=== PATIENT | female | born 1990 | race Caucasian/White ===

== ENCOUNTER 2017-07-29 15:16 | Inpatient (IN) | payer OTHER ==
[~2017-07-29] VITALS: Ht 157.5 cm; Wt 81.2 kg
[2017-07-29] VITALS (8 sets, daily range): BP systolic 124–137; BP diastolic 66–85
[2017-07-29] MEDS ORDERED: PRENTAB9 PO (15:50)
[2017-07-29] MEDS ORDERED: FERR325T3 PO (15:50)
[2017-07-29] MEDS ORDERED: COLA100C5 PO (15:50)
[2017-07-29] MEDS ORDERED: ZANT1TAB PO (15:51)
[2017-07-29] MEDS ORDERED: LACTATED RINGER'S 1000 ML IV STA (16:31)
[2017-07-29] MEDS ORDERED: LR 1,000 ML IV SCH ×2 (16:31)
[2017-07-29] MEDS ORDERED: OXYTOCIN DRIP 30 UNITS in APPROPRIATE DILUENT 1 EA IV SCH (16:45)
--- NOTE | 2017-07-29 16:55 | HPEPDOC ---
Obstetrical History & Physical General Date of Admission Jul 29, 2017 at 16:20 History of Present Illness 26 yo G1 @ 40+1 by LMP(21OCT2016) and 9+6 wk US on 29DEC2016) presents to L&D ambulatory with c/o LOF. Denies CTX, VB and DFM. GBS negative. Chief Complaint: LOF, term Information Provided By: Patient Age: 26 : 1 Term: 0 Pre-term: 0 Abortions: 0 Livin Care Care: Good Care Number of Visits: 9 Dating Final EDC: Jul 28, 2017 Final EDC for Daily Update: Jul 28, 2017 Final EDC by: LMP LMP: Oct 21, 2016 1st Trimester Date: Dec 29, 2016 Weeks + Days: 9.6 Estimated Date of Confinement: Jul 28, 2017 EGA at Admission: 40.1 Antepartum Course Diagnos(e)s 1. Constipation 2. anemia 3. Elevated 1 hour GTT- 3 hour normal 4. GERD Height (inches): 62 Pre- weight (lbs.): 148 Admission Weight (lbs.): 180 Change in Weight (lbs.): 32 Past Medical History Past Obstetrical History : Past Obstetrical History: [employer] History: No pertinent history Past Medical History Medical History -chronic constipation Surgical History: Tonsilectomy (1998), [place] teeth (2008), Other (cystoscopy- 2006) Family History Significant Family History: No pertinent family hx Social History Marital Status: Family situation: Spouse/partner home Psychosocial History: No pertinent psych hx * Smoker: non-smoker Alcohol: Denies Drugs: denies Abuse Violence Screening Have you been hit/kicked/slapp: No Have you been sexually assault: No Imunizations Tdap status: current ([id number]) Influenza Status: current ([id number]) Allergies Coded Allergies: Penicillins (Verified Allergy, Unknown, 07/29/17) Medications Scheduled Docusate Sodium (Colace) 100 Mg Cap, 100 MG PO DAILY Ferrous Sulfate (Ferrous Sulfate) 325 Mg Tab, 325 MG PO TID Multivitamins/ ( 27-0.8 mg) 1 Tab Tab, Unknown Dose PO DAILY Ranitidine HCl (Zantac) 150 Mg Tab, 1 TAB PO BID Physical Examination Physical Examination GENERAL: A&O x3 ABDOMEN: Gravid, Non-tender to touch FETUS: Is VTX by SVBeverley and Tomas. HEART RATE: RRR, no m/r/g LUNGS: CTA EXTREMITIES: No edema. No clonus. DTRs +1 EFW- 3400 gms Laboratory Data 24H LABS Laboratory Tests 2 07/29/17 16:30: Serology Scanned Report Hepatitis B Testing CBC/BMP [id number] 5.2/12.0/35.2/266 [id number] 13.10/10.6/31.5/226 [id number] 11.20/12.6/38.4/168 Pertinent Laboratoy Data Blood Type: A+ RBC Antibody Screen: Negative HIV: Negative Hepatitis B: Negative Hepatitis C: Unknown Rapid Plasma Reagin: Nonreactive Rubella: Immune Varicella: Immune Chlamydia/Gonorrhea: Negative Group B Streptococcus: Negative Quad Screen Test: Declined Cystic Fibrosis: Negative Glucose Tolerance Test: 191 (88/167/128/54) Anatomy Ultrasound Ultrasound Date: March 08, 2017 Placenta Location: Anterior Normal Anatomy: Yes Placenta Previa: No Estimated Weight (grams): 270 (34%) Steroid Therapy Steroid Therapy: No Vaginal Examination Dilation: 1cm Effacement: 40-50% Station: -2 Cervical Consistency: Medium Cervical Position: Middle Presentation: Cephalic presentation Position: Vertex (occiput) Assessment Heart Rate (FHR): 150 Variability: Moderate Accelerations: Positive Decelerations: None Tocometer Contractions: Yes Frequency: regular, every 1-3 min. Duration: less than 60 seconds Strength: palpated as mild, resting tone palp/soft Multi-drug resistant Organism: No history of MDRO Assessment/Plan Assessment 26 yo G1 @ 40+1 by LMP(21OCT2016) and 9+6 wk US on 29DEC2016) presents to L&D ambulatory with SROM @ 1230 07/29. Denies CTX, VB and DFM. GBS negative. Plan Admit and orient. 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 Diet: clear liquid GBS negative Labs and IV per protocol Counseled on Pitocin and IOL LR Bolus 1000 mL, then at 125 mL/hr. Anticipate C-S as appropriate. VEDA JEAN CNM Jul 29, 2017 16:55
[2017-07-29 16:58] LABS: MEAN CORPUSCULAR HEMOGLOBIN 31.4 pg (27.0-33.0); MEAN CORPUSCULAR HGB CONC 33.5 g/dl (32.0-36.5); MEAN CORPUSCULAR VOLUME 93.8 fl (80.0-96.0); RED CELL DISTRIBUTION WIDTH 13.6 % (11.5-14.5); WHITE BLOOD COUNT 11.4 10^3/uL (4.0-10.0)
--- NOTE | 2017-07-29 21:22 | IPNPDOC ---
Text Note Date of Service The patient was seen on 07/29/17. NOTE [id number] @ 0918 26 yo G1 @ 40+1 by LMP(21OCT2016) and 9+6 wk US on 29DEC2016) presents to L&D ambulatory with c/o LOF. Denies CTX, VB and DFM. GBS negative. S: On the ball at bedside, reports some CTXs, but denies pain. FOB at bedside O: VS- WNL, afebrile FHR- 150, moderate variability, + accel, no decels CTX- Q2-4 min, lasting <90 sec, palpated a mild, resting tone palpated as soft SVE- 2/70/-2- per RN Pitocin @ 10 mU/min A: 26 yo G1 @ 41+1 with minimal cervical change, CAT I FHR tracing P: continue to monitor and assess, reassess prn, cont pitocin IOL per protocol VS,Fishbone, I+O VS, Fishbone, I+O Laboratory Tests 07/29/17 16:48 Red Blood Count 4.49, Mean Corpuscular Volume 93.8, Mean Corpuscular Hemoglobin 31.4, Mean Corpuscular Hemoglobin Concent 33.5, Red Cell Distribution Width 13.6 Vital Signs Date Time Temp Pulse Resp B/P (MAP) Pulse Ox O2 Delivery O2 Flow Rate FiO2 07/29/17 18:53 107 137/82 (100) VEDA JEAN CNM Jul 29, 2017 21:22
[2017-07-30] VITALS (57 sets, daily range): BP systolic 96–168; BP diastolic 53–82
[2017-07-30] MEDS ORDERED: FENTANYL 2MCG/ML ROPIVACAINE 0.2% IN 0.9% NACL 200ML IVBAG As Ordered ONE (01:30)
--- NOTE | 2017-07-30 01:36 | IPNPDOC ---
Text Note Date of Service The patient was seen on 07/30/17. NOTE [id number] @ 0125 26 yo G1 @ 40+2 by LMP(21OCT2016) and 9+6 wk US on 29DEC2016) presents to L&D ambulatory with c/o LOF. Denies CTX, VB and DFM. GBS negative. S: On hands and knees in the bed, reports painful CTXs. Requesting and epidural. FOB at bedside O: VS- WNL, afebrile FHR- 145, moderate variability, + accel, no decels CTX- Q1-2 min, lasting <90 sec, palpated a mild, resting tone palpated as soft SVE- 2/100/-2, soft/mid/vtx Pitocin @ 14 mU/min SROM x 7 hours, fluid remains clear A: 26 yo G1 @ 41+1 with minimal cervical change, CAT I FHR tracing P: continue to monitor and assess, reassess prn, cont pitocin IOL per protocol. Anesthesia consult for epidural now Nemo CABAN, I+O VSNemo, I+O Laboratory Tests 07/29/17 16:48 Red Blood Count 4.49, Mean Corpuscular Volume 93.8, Mean Corpuscular Hemoglobin 31.4, Mean Corpuscular Hemoglobin Concent 33.5, Red Cell Distribution Width 13.6 Vital Signs Date Time Temp Pulse Resp B/P (MAP) Pulse Ox O2 Delivery O2 Flow Rate FiO2 07/30/17 00:56 81 107/71 (83) 07/29/17 22:02 98.5 16 VEDA JEAN CNM Jul 30, 2017 01:36
[2017-07-30] MEDS ORDERED: EPIDURAL COMMENT XX SCH (02:15)
[2017-07-30] MEDS ORDERED: ONDANSETRON 4MG/2ML VIAL (J2405) IV PRN ×2 (02:15→13:45)
[2017-07-30] MEDS ORDERED: NALOXONE INJ 0.4 MG/1 ML VIAL (J2310) IV PRN (02:15)
[2017-07-30] MEDS ORDERED: diphenhydrAMINE INJ 50MG/ML VIAL (J1200) IV PRN (02:15)
[2017-07-30] MEDS ORDERED: ePHEDrine SULFATE 25 MG/5 ML(5MG/ML) SYRINGE IV PRN (02:15)
[2017-07-30] MEDS ORDERED: FENTANYL/ROPIVACAINE/NACL BAG 200 ML EPIDURAL SCH (02:15)
[2017-07-30] MEDS ORDERED: REFRIGERATOR IV KEYS XX PRN (02:15)
[2017-07-30] MEDS ORDERED: LACTATED RINGER'S 1000 ML IV PRN (02:15)
[2017-07-30] MEDS ORDERED: EPIDURAL/PCA KEYS XX PRN (02:15)
[2017-07-30] MEDS ORDERED: UNASYN 1.5 GM VIAL As Ordered ONE (12:08)
[2017-07-30] MEDS ORDERED: GENTAMICIN 400 MG in D5W 50 ML IV ONE (12:15)
[2017-07-30] MEDS ORDERED: CLINDAMYCIN 900 MG in APPROPRIATE DILUENT 1 EA IV SCH (12:15)
[2017-07-30] MEDS ORDERED: CLINDAMYCIN 900 MG/50 ML PREMIX BAG As Ordered ONE (12:18)
[2017-07-30] MEDS ORDERED: OXYTOCIN 30 UNITS IN 0.9% NaCl 500ML IV BAG (J2590) As Ordered ONE (12:59)
[2017-07-30] MEDS: OXYTOCIN DRIP 30 UNITS in APPROPRIATE DILUENT 1 EA IV SCH ×2 (13:10→14:05)
[2017-07-30] MEDS ORDERED: DIBUCAINE 1% OINTMENT 30GM TOP PRN (13:45)
[2017-07-30] MEDS ORDERED: PROMETHAZINE 25 MG TAB PO PRN (13:45)
[2017-07-30] MEDS ORDERED: ANUSOL HC CREAM 30GM TOP PRN (13:45)
[2017-07-30] MEDS ORDERED: METHYLERGONOVINE MALEATE 0.2 MG/ML VIAL (J2210) IM ONE (13:45)
[2017-07-30] MEDS ORDERED: miSOPROStol 200 MCG TAB (S0191) PR ONE (14:00)
--- NOTE | 2017-07-30 14:10 | DNPDOC ---
[facility] Delivery Note Delivery Note DATE OF DELIVERY: [id number] PREDELIVERY DIAGNOSIS: 40+2 weeks' gestation and labor. POST DELIVERY DIAGNOSIS: Delivered. PROCEDURE: MILK TANKER DRIVER: Linda Vázquez CNM ANESTHESIA: epidural ESTIMATED BLOOD LOSS: 600mL. FINDINGS: 8 pound 7 ounce 3820 infant, Score 8/8, nuchal cord times x 1 DELIVERY SUMMARY: Patient is a 26 yo who was admitted for SROM of clear fluid @ 1240 on 29JUL2017. She progressed to c/c/+2 1/2 with pitocin infusing and epidural infusing. She had c/o increasing rectal pressure. Variable decelerations noted with pushing effort. She pushed for approx 2 hours and 20 min. Dx of chorio made during pushing. Female delivered via to a sterile field. head delivered in a controlled manner. Nuchal cord x 1 note with additional body cord. Shoulders delivered with mild downward traction(shoulders presented directly transverse). Corpus delivered over approx 30 seconds. Female infant placed on mother's abdomen. Cord clamped x 2 and cut by delivering provider. Pitocin bolus started with delivery of . Infant had a vigorous cry. Intact Placenta with 3 vessel cord delivered spontaneously approximately 3 min later. Posterior vaginal vault laceration noted. Repaired in usual fashion. Fundus noted to be boggy along with lower uterine segment. Uterus swept of clots. Cytotec 1000 mcg VT. 2nd bag of pitocin bolus. Methergine given IM x 1. Dr. Becker called to bedside for further assessment. Performed a speculum exam. Bleeding returned to normal expected bleeding after delivery. EBL- 600 ml. - 8/8, 8 lbs 7 ounces, 3820 gms, mother is in stable condition in the delivery room. Infant is in the NICU d/t mother's dx of chorio. Plan to draw CBC @ 1800, Methergine series ordered. Linda Vázquez CNM WILSON, KELLI C. CNM Jul 30, 2017 14:10
[2017-07-30] MEDS: METHYLERGONOVINE MALEATE 0.2 MG TAB PO SCH ×2 (17:00→21:00)
[2017-07-30] MEDS: ACETAMINOPHEN 500 MG TAB PO PRN (17:11)
[2017-07-30] MEDS: IBUPROFEN 800 MG TAB PO PRN (22:12)
[2017-07-31] MEDS: METHYLERGONOVINE MALEATE 0.2 MG TAB PO SCH ×6 (02:13→21:30)
[2017-07-31 06:00] VITALS: BP 113/80
[2017-07-31] MEDS: IBUPROFEN 800 MG TAB PO PRN ×2 (06:25→18:22)
--- NOTE | 2017-07-31 08:42 | IPNPDOC ---
Text Note Date of Service The patient was seen on 07/31/17. NOTE PPD1 prog note States feeling well, no complaints. No heavy VB. Pain controlled. Voiding, ambulatory. Bonding well. Breast feeding. VSSAF CTAB RRR Ut at U-2, firm Ext no CCE a/p: Doing well. Routine PP care. Sessions VS,Nemo, I+O VSNemo, I+O Vital Signs Date Time Temp Pulse Resp B/P (MAP) Pulse Ox O2 Delivery O2 Flow Rate FiO2 07/31/17 06:00 97.6 80 18 113/80 (91) SESSIONS,COLIN Veliz MD Jul 31, 2017 08:42
[2017-07-31] MEDS: PRENATAL VITAMINS CHEWABLE TABLET PO SCH (09:00)
[2017-07-31] MEDS: DOCUSATE SODIUM 100 MG CAP PO PRN (14:50)
[2017-07-31 18:00] VITALS: BP 133/78
[2017-07-31 18:25] LABS: MEAN CORPUSCULAR HEMOGLOBIN 31.3 pg (27.0-33.0); MEAN CORPUSCULAR HGB CONC 32.7 g/dl (32.0-36.5); MEAN CORPUSCULAR VOLUME 95.9 fl (80.0-96.0); RED CELL DISTRIBUTION WIDTH 13.8 % (11.5-14.5); WHITE BLOOD COUNT 14.7 10^3/uL (4.0-10.0)
[2017-08-01] MEDS: METHYLERGONOVINE MALEATE 0.2 MG TAB PO SCH ×4 (01:00→13:00)
[2017-08-01 06:01] VITALS: BP 122/86
[2017-08-01] MEDS: PRENATAL VITAMINS CHEWABLE TABLET PO SCH (09:00)
[2017-08-01] MEDS: IBUPROFEN 800 MG TAB PO PRN (09:19)
[2017-08-01] MEDS: DOCUSATE SODIUM 100 MG CAP PO PRN (13:21)
[2017-08-01] MEDS: ACETAMINOPHEN 500 MG TAB PO PRN (13:21)
[2017-08-01] MEDS ORDERED: ACET50TA PO (17:22)
[2017-08-01] MEDS ORDERED: IBUP-1114 PO (17:23)
[2017-08-01] MEDS ORDERED: COLA100C5 PO (17:25)
--- NOTE | 2017-08-01 18:12 | IPNPDOC ---
Text Note Date of Service The patient was seen on 08/01/17. NOTE Pt is a 26yo [id number] s/p uncomplicated following SROM at term, doing well PPD 1. Ambulating, tolerating regular diet and voiding spontaneously without problem. Denies f/c/n/v/CP/SOB. Vitals wnl, afebrile General: WDWN, NAD, resting comfortably Abdomen: soft, NT, ND, fundus firm at u-1cm Extremities: BLE trace edema Assessment: Doing well PPD 1, vitals wnl, afebrile, hemodynamically stable. Breast feeding well. Plan: -discharge to home today -meds given: colace, tylenol, ibuprofen, lanolin -return to clinic in 6wk for routine PP visit -unsure of desired contraception -return precautions given Dr. Don Oocnnell MD VS,Nemo, I+O VS, Nemo, I+O Laboratory Tests 07/31/17 18:11 Red Blood Count 4.69, Mean Corpuscular Volume 95.9, Mean Corpuscular Hemoglobin 31.3, Mean Corpuscular Hemoglobin Concent 32.7, Red Cell Distribution Width 13.8 Vital Signs Date Time Temp Pulse Resp B/P (MAP) Pulse Ox O2 Delivery O2 Flow Rate FiO2 08/01/17 06:01 98.2 68 16 122/86 (98) 99 Room Air DON OCONNELL MD Aug 01, 2017 18:12
== END 2017-08-01 19:40 | disposition home or self-care (01) | DRG 775 ==
LOC: M LDO 15:16 → M LDI 16:20 → M OBS 07-30 17:23
PROVIDERS: ADMIT Midwife; ATTEND Midwife
PROC: 10E0XZZ Delivery of Products of Conception, External Approach (ICD-10-PCS; principal; 2017-07-30)
PROC: 0HQ9XZZ Repair Perineum Skin, External Approach (ICD-10-PCS; 2017-07-30)
DX: O48.0 Post-term pregnancy (principal); O41.1230 Chorioamnionitis, third trimester, not applicable or unspecified; O99.02 Anemia complicating childbirth; Z3A.40 40 weeks gestation of pregnancy; K59.00 Constipation, unspecified; K21.9 Gastro-esophageal reflux disease without esophagitis; D64.9 Anemia, unspecified; O99.62 Diseases of the digestive system complicating childbirth; O70.0 First degree perineal laceration during delivery; O32.2XX0 Maternal care for transverse and oblique lie, not applicable or unspecified; Z37.0 Single live birth